=== PATIENT | male | born 1980 | race Caucasian/White ===

== ENCOUNTER 2020-11-02 16:51 | Emergency (ER) | payer OTHER ==
[~2020-11-02] VITALS: Ht 182.9 cm; Wt 81.2 kg
[2020-11-02] MEDS ORDERED: CYCLOBENZAPRINE10 MG PO (17:25)
== END 2020-11-02 17:35 | disposition home or self-care (01) ==
LOC: ED 16:51
DX: M54.5 Low back pain (principal); F17.200 Nicotine dependence, unspecified, uncomplicated
CPT/HCPCS: 99283